=== PATIENT | female | born 1990 | race Caucasian/White ===

== ENCOUNTER 2019-01-20 11:36 | Emergency (ER) | payer SELFPAY ==
[~2019-01-20] VITALS: Ht 160 cm; Wt 87.0 kg
[2019-01-20] MEDS ORDERED: vancomycin/NS 1 GM ADD-VANTAGE 250 ML IV ONE (13:35)
[2019-01-20] MEDS ORDERED: normal saline 1000ML IV soln IV ONE (13:35)
[2019-01-20] MEDS ORDERED: levoFLOXACIN-Levaquin 750MG/D5 150 ML IV ONE (13:35)
[2019-01-20 13:52] LABS: BASOPHILS # (AUTO) 0.1 X10'3 (0-0.2); BASOPHILS % (AUTO) 0.5 % (0-1); EOSINOPHILS % (AUTO) 0.4 % (0-6); HEMATOCRIT 34.7 % (35.0-45.0); HEMOGLOBIN 11.8 g/dl (12.0-16.0); LYMPHOCYTES % (AUTO) 18.6 % (21-51); MEAN CORPUSCULAR HEMOGLOBIN 27.3 PG (27.0-31.0); MEAN CORPUSCULAR HGB CONC 33.9 g/dL (33.0-36.5); MEAN CORPUSCULAR VOLUME 80.7 FL (78-98); MEAN PLATELET VOLUME 8.9 FL (7.4-10.4); MONOCYTES # (AUTO) 0.9 X10'3 (0-0.9); MONOCYTES % (AUTO) 8.3 % (2-12); NEUTROPHILS # (AUTO) 7.9 X10'3 (1.8-7.7); NEUTROPHILS % (AUTO) 72.2 % (42-75); PLATELET COUNT 261 X10'3 (140-440); RED CELL DISTRIBUTION WIDTH 13.6 % (11.5-14.5)
[2019-01-20 14:07] LABS: ALANINE AMINOTRANSFERASE 47 U/L (12-78); ALBUMIN 2.6 G/DL (3.4-5.0); ALBUMIN/GLOBULIN RATIO 0.6 (1.1-1.5); ALKALINE PHOSPHATASE 78 IU/L (46-116); ANION GAP 5 (8-16); ASPARTATE AMINO TRANSFERASE 18 U/L (10-37); BILIRUBIN,TOTAL 0.3 MG/DL (0.1-1.0); BLOOD UREA NITROGEN 6 MG/DL (7-18); BUN/CREATININE RATIO 6.3 (6.6-38.0); CALCIUM 8.3 MG/DL (8.5-10.1); CHLORIDE 103 MMOL/L (99-107); CREATININE 0.95 MG/DL (0.40-0.90); GLUCOSE 119 MG/DL (70-104); POTASSIUM 3.7 MMOL/L (3.5-5.1); SODIUM 137 MMOL/L (135-145); TOTAL CARBON DIOXIDE 28.6 MMOL/L (24-32); TOTAL PROTEIN 7.2 G/DL (6.4-8.2); eGFR 71 ML/MIN
[2019-01-20] MEDS ORDERED: LIDOcaine 1% w/epiNEPHrine 1:200,000 30ml vial IM ONE (14:10)
[2019-01-20] MEDS ORDERED: ondansetron/PF 4mg/2ml inj IV ONE (14:10)
[2019-01-20] MEDS ORDERED: morphine 4 MG/ML inj SYRINge IV PRN (14:10)
[2019-01-20 14:30] VITALS: BP 132/88
[2019-01-20] MEDS ORDERED: dextrose 5%-1/2 normal saline 1,000 ML IV SCH (15:26)
[2019-01-20] MEDS ORDERED: acetaminophen 325mg tablet PO PRN (15:30)
[2019-01-20] MEDS ORDERED: HYDROcodone/acetaminophen 5mg/325mg tablet PO PRN (15:30)
[2019-01-20] MEDS ORDERED: magnesium hydroxide 30ml (MOM) UD suspension PO PRN (15:30)
[2019-01-20] MEDS ORDERED: morphine 2 MG/ML inj. syringe IV PRN ×2 (15:30)
[2019-01-20] MEDS ORDERED: HYDROcodone/acetaminophen 10/325mg tab PO PRN (15:30)
[2019-01-20] MEDS ORDERED: ondansetron/PF 4mg/2ml inj IV PRN (15:30)
[2019-01-20] MEDS ORDERED: mag hydrox/Alum hydrox/simeth 30ml oral suspension PO PRN (15:30)
[2019-01-20] MEDS ORDERED: NO HOME MEDS (15:33)
[2019-01-20] MEDS ORDERED: CEPH500C5 PO (16:06)
[2019-01-20] MEDS ORDERED: BACDS PO (16:06)
--- NOTE | 2019-01-20 16:50 | NUR ---
PT FLAGGED ME DOWN FROM HER ROOM STATING SHE IS LEAVING AMA. STATED DR ALEJANDRE ALREADY SPOKE WITH HER AND SHE IS GOING TO [facility]. PT REFUSED TO STAY FOR ENTIRE VANCO DOSE OF IV ANTIBIOTICS. IV REMOVED WITH CANULA INTACT. PRESSURE HELD UNTIL STASIS ACHIEVED. AMBULATED OUT OF ED WITH ALL BELONGINGS WITH NO DISTRESS NOTED. PAGE SENT TO HOSPITALIST DR BERNAL. JOSIE HILARIO UPDATED
[2019-01-20] MEDS ORDERED: vancomycin/NS 1 GM ADD-VANTAGE 250 ML IV SCH (20:00)
[2019-01-21] MEDS ORDERED: VANCOmycin 1250MG/NS 250ml Bag 250 ML IV SCH
[2019-01-21] MEDS ORDERED: VANCOMYCIN LEVEL IV ONE (15:30)
== END 2019-01-20 17:03 | disposition left against medical advice (07) ==
LOC: ER 11:37
DX: L02.413 Cutaneous abscess of right upper limb (principal); L03.113 Cellulitis of right upper limb; F17.210 Nicotine dependence, cigarettes, uncomplicated; F11.90 Opioid use, unspecified, uncomplicated; Z88.1 Allergy status to other antibiotic agents
CPT/HCPCS: 10060; 36415; 73090; 80053; 85025; 87070; 87077; 87186; 96365; 96367; 96375; 99284; J1956; J2270; J2405; J3370; J7030